=== PATIENT | female | born 1980 | race Caucasian/White ===

== ENCOUNTER 2016-12-23 21:57 | Emergency (ER) | payer MEDICAID ==
[~2016-12-23] VITALS: Ht 167.6 cm; Wt 127.3 kg
[2016-12-23] MEDS ORDERED: KETOROLAC 30 MG/1 ML ONE (23:10)
[2016-12-23 23:20] VITALS: BP 136/93
[2016-12-23] MEDS ORDERED: KETOROLAC 30 MG/1 ML IM ONE (23:30)
== END 2016-12-23 23:29 | disposition home or self-care (01) ==
LOC: ED 22:20
DX: M77.9 Enthesopathy, unspecified (principal); M75.32 Calcific tendinitis of left shoulder; X58.XXXA Exposure to other specified factors, initial encounter; Y93.89 Activity, other specified; Y99.8 Other external cause status; Y92.009 Unspecified place in unspecified non-institutional (private) residence as the place of occurrence of the external cause
CPT/HCPCS: 73030; 99284; J1885